=== PATIENT | male | born 1980 | race Caucasian/White ===

== ENCOUNTER → 2020-08-21 10:29 | Outpatient (CLI) | payer OTHER, SELFPAY ==
[2020-08-21 11:44] LABS: Hemoglobin A1C% w Est Avg Glu 5.4 % (4.0-6.0)
[2020-08-21 12:07] LABS: Alanine Aminotransferase 39 IU/L (<50); Albumin 4.3 g/dL (3.5-5.0); Albumin Globulin Ratio 1.3 (1.0-2.8); Alkaline Phosphatase 95 U/L (38-126); Aspartate Aminotransferase 31 IU/L (17-59); BUN Creatinine Ratio 15.6 (6-22); Bilirubin Total 0.5 mg/dL (0.2-1.3); Blood Urea Nitrogen 15 mg/dL (9-20); Calcium 9.5 mg/dL (8.4-10.2); Carbon Dioxide 31 mmol/L (22-32); Chloride 104 mmol/L (98-107); Cholesterol 254 mg/dL (140-199); Estimated Glomerular Filt Rate > 60.0 mL/min (>60); Globulin 3.3 g/dL (1.7-4.1); Glucose 102 mg/dL (70-100); HDL Cholesterol 34 mg/dL (40-60); HEMOLYSIS < 15 (0-50); Potassium 3.7 mmol/L (3.4-5.1); Sodium 138 mmol/L (137-145); Total Protein 7.6 g/dL (6.3-8.2)
[2020-08-21 12:29] LABS: Triglycerides 617 mg/dL (35-150)
[2020-08-21 12:36] LABS: TSH w/ Reflex to FT4 2.23 uIU/mL (0.47-4.68)
[2020-08-26 09:45] LABS: Percent Free Testosterone 4.32 % (1.50-4.20); Testosterone Free 10.93 ng/dL (5.00-21.00)
== END ==
PROVIDERS: PCP Family Medicine; Referring Provider Family Medicine; Visit Provider Family Medicine
DX: N52.9 Male erectile dysfunction, unspecified (principal)
CPT/HCPCS: 36415; 80053; 80061; 83036; 84402; 84403; 84443

== ENCOUNTER → 2020-08-28 11:31 | Outpatient (CLI) | payer OTHER, SELFPAY | PROVIDERS: PCP Family Medicine; Referring Provider Family Medicine; Visit Provider Family Medicine | DX: R79.89 Other specified abnormal findings of blood chemistry (principal) | CPT/HCPCS: 36415; 84402; 84403 ==

== ENCOUNTER → 2020-09-07 14:40 | Outpatient (CLI) | payer OTHER, SELFPAY ==
[2020-09-12 05:18] LABS: Percent Free Testosterone 3.12 % (1.50-4.20); Testosterone Free 7.38 ng/dL (5.00-21.00); Testosterone Total 236.5 ng/dL (264.0-916.0)
== END ==
PROVIDERS: PCP Family Medicine; Referring Provider Family Medicine; Visit Provider Family Medicine
DX: N52.9 Male erectile dysfunction, unspecified (principal)
CPT/HCPCS: 36415; 84402; 84403

== ENCOUNTER → 2020-10-05 15:21 | Outpatient (CLI) | payer OTHER, SELFPAY ==
[2020-10-05 16:56] LABS: Add Manual Diff / Slide Review NO; Basophils Absolute Auto 100 /uL (0-100); Basophils Percent Auto 0.7 % (0-2); Eosinophils Absolute Auto 400 /uL (0-450); Eosinophils Percent Auto 4.7 % (2-4); Hematocrit 44.7 % (41-53); Hemoglobin 15.3 g/dL (13.5-17.5); Lymphocytes Absolute Auto 3000 /uL (1100-4500); Lymphocytes Percent Auto 33.5 % (25-40); Mean Corpuscular HGB Conc 34.2 % (30-36); Mean Corpuscular Hemoglobin 31.8 PG (26-34); Mean Corpuscular Volume 92.9 fL (80-100); Monocytes Absolute Auto 1100 /uL (0-900); Monocytes Percent Auto 11.9 % (3-14); Neutrophils Absolute Auto 4400 /uL (1500-7000); Neutrophils Percent Auto 49.2 % (50-75); Platelet Count 290 X10^3/uL (150-400); Red Blood Cell Count 4.82 X10^6/uL (4.5-5.9); Red Cell Distribution Width 13.1 % (11.6-14.8); White Blood Cell Count 8.9 X10^3/uL (4.5-11.0)
== END ==
PROVIDERS: PCP Family Medicine; Referring Provider Family Medicine; Visit Provider Family Medicine
DX: R79.89 Other specified abnormal findings of blood chemistry (principal); Z12.5 Encounter for screening for malignant neoplasm of prostate
CPT/HCPCS: 36415; 85025; G0103

== ENCOUNTER → 2020-12-03 11:18 | Outpatient (CLI) | payer OTHER, SELFPAY ==
[2020-12-03 12:37] LABS: Add Manual Diff / Slide Review NO; Basophils Absolute Auto 0 /uL (0-100); Basophils Percent Auto 0.6 % (0-2); Eosinophils Absolute Auto 400 /uL (0-450); Eosinophils Percent Auto 6.5 % (2-4); Hematocrit 45.7 % (41-53); Hemoglobin 15.5 g/dL (13.5-17.5); Lymphocytes Absolute Auto 2500 /uL (1100-4500); Lymphocytes Percent Auto 36.7 % (25-40); Mean Corpuscular Hemoglobin 31.7 PG (26-34); Mean Corpuscular Volume 93.1 fL (80-100); Monocytes Absolute Auto 900 /uL (0-900); Monocytes Percent Auto 12.8 % (3-14); Neutrophils Absolute Auto 2900 /uL (1500-7000); Neutrophils Percent Auto 43.4 % (50-75); Platelet Count 260 X10^3/uL (150-400); Red Blood Cell Count 4.91 X10^6/uL (4.5-5.9); White Blood Cell Count 6.8 X10^3/uL (4.5-11.0)
[2020-12-03 12:52] LABS: Cholesterol 151 mg/dL (140-199); HDL Cholesterol 39 mg/dL (40-60); LDL Cholesterol Calculated 78 mg/dL (<100); Triglycerides 168 mg/dL (35-150)
[2020-12-07 07:41] LABS: Percent Free Testosterone 3.86 % (1.50-4.20); Testosterone Free 20.36 ng/dL (5.00-21.00); Testosterone Total 527.5 ng/dL (264.0-916.0)
== END ==
PROVIDERS: PCP Family Medicine; Referring Provider Family Medicine; Visit Provider Family Medicine
DX: R79.89 Other specified abnormal findings of blood chemistry (principal); E78.5 Hyperlipidemia, unspecified
CPT/HCPCS: 36415; 80061; 84402; 84403; 85025

== ENCOUNTER → 2021-06-13 15:15 | Outpatient (CLI) | payer OTHER, SELFPAY ==
[2021-06-19 15:58] LABS: Percent Free Testosterone 4.02 % (1.50-4.20); Testosterone Free 7.13 ng/dL (5.00-21.00); Testosterone Total 177.4 ng/dL (264.0-916.0)
== END ==
PROVIDERS: PCP Family Medicine; Referring Provider Family Medicine; Visit Provider Family Medicine
DX: R79.89 Other specified abnormal findings of blood chemistry (principal)
CPT/HCPCS: 36415; 84402; 84403

== ENCOUNTER → 2021-12-07 09:33 | Outpatient (CLI) | payer OTHER, SELFPAY ==
[2021-12-07 09:58] LABS: Add Manual Diff / Slide Review NO; Basophils Absolute Auto 100 /uL (0-100); Basophils Percent Auto 0.6 % (0-2); Eosinophils Absolute Auto 400 /uL (0-450); Eosinophils Percent Auto 5.3 % (2-4); Hematocrit 47.1 % (41-53); Hemoglobin 16.1 g/dL (13.5-17.5); Lymphocytes Absolute Auto 2400 /uL (1100-4500); Lymphocytes Percent Auto 29.1 % (25-40); Mean Corpuscular HGB Conc 34.2 % (30-36); Mean Corpuscular Hemoglobin 31.3 PG (26-34); Mean Corpuscular Volume 91.5 fL (80-100); Monocytes Absolute Auto 1000 /uL (0-900); Monocytes Percent Auto 11.7 % (3-14); Neutrophils Absolute Auto 4300 /uL (1500-7000); Neutrophils Percent Auto 53.3 % (50-75); Platelet Count 299 X10^3/uL (150-400); Red Blood Cell Count 5.14 X10^6/uL (4.5-5.9); Red Cell Distribution Width 13.3 % (11.6-14.8); White Blood Cell Count 8.1 X10^3/uL (4.5-11.0)
[2021-12-07 10:23] LABS: Alanine Aminotransferase 48 IU/L (<50); Albumin 4.8 g/dL (3.5-5.0); Albumin Globulin Ratio 1.7 (1.0-2.8); Alkaline Phosphatase 94 U/L (38-126); Aspartate Aminotransferase 32 IU/L (17-59); BUN Creatinine Ratio 17.5 (6-22); Bilirubin Total 0.7 mg/dL (0.2-1.3); Blood Urea Nitrogen 17 mg/dL (9-20); Calcium 9.3 mg/dL (8.4-10.2); Carbon Dioxide 28 mmol/L (22-32); Chloride 106 mmol/L (98-107); Cholesterol 154 mg/dL (140-199); Estimated Glomerular Filt Rate > 60 mL/min (>60); Globulin 2.8 g/dL (1.7-4.1); Glucose 101 mg/dL (70-100); HDL Cholesterol 37 mg/dL (40-60); HEMOLYSIS < 15 (0-50); LDL Cholesterol Calculated 76 mg/dL (<100); Potassium 3.7 mmol/L (3.4-5.1); Sodium 142 mmol/L (137-145); Total Protein 7.6 g/dL (6.3-8.2); Triglycerides 205 mg/dL (35-150)
[2021-12-16 11:20] LABS: Percent Free Testosterone 3.21 % (1.50-4.20); Testosterone Free 7.51 ng/dL (5.00-21.00); Testosterone Total 233.9 ng/dL (264.0-916.0)
== END ==
PROVIDERS: PCP Family Medicine; Referring Provider Family Medicine; Visit Provider Family Medicine
DX: R79.89 Other specified abnormal findings of blood chemistry (principal); E78.5 Hyperlipidemia, unspecified
CPT/HCPCS: 36415; 80053; 80061; 84402; 84403; 85025

== ENCOUNTER 2022-02-16 15:13 | Emergency (ER) | payer OTHER, SELFPAY ==
[2022-02-16 16:00] VITALS: BP 132/91; PULSE 98; RESP 18; TEMP 36.6; O2SAT 98; BMI 33.5
--- NOTE | 2022-02-16 20:30 | DI.RAD.S_ITS ---
PROCEDURE: XR CHEST 2V INDICATIONS: cough, worsening, post COVID TECHNIQUE: 2 views of the chest were acquired. COMPARISON: None. FINDINGS: Surgical changes and devices: None. Lungs and pleura: There are linear opacities in the lung bases likely representing atelectasis or scarring. No acute consolidation. No pleural effusions or pneumothorax. Mediastinum: Mediastinal contours are normal. Heart size is normal. Bones and chest wall: No suspicious bony abnormalities. Soft tissues appear unremarkable. IMPRESSION: 1. Probable linear atelectasis or scarring in the lung bases. No acute consolidation. Dictated by: Tim Willett M.D. on 02/16/2022 at 22:16 Approved by: Tim Willett M.D. on 02/16/2022 at 22:17
--- NOTE | 2022-02-16 20:32 | ED.URI ---
HPI - URI/Sore Throat General Chief Complaint: Upper Respiratory Symptoms Stated Complaint: covid+ 16/trouble swallowing Time Seen by Provider: 02/16/22 18:55 Source: patient Mode of arrival: Ambulatory History of Present Illness HPI Narrative: 41-year-old male nonsmoker with history of hyperlipidemia and seasonal allergies presents for evaluation of a persistent, if not worsening cough that seems to be worse with deep breath as well as attempts at conversation. He is not profoundly short of breath with exertion or at rest, chief complaint is of cough as stated above. He had been diagnosed with COVID about 2 weeks ago along with multiple other family members, all of which have recovered completely. Additionally he has a sore throat, difficulty swallowing due to pain. He has had no nausea, vomiting or diarrhea. He denies any urinary complaints. He has been taking jkxb-sns-jmuwria medications including antihistamines and Mucinex with minimal relief. Related Data Previous Rx's Medication Instructions Recorded pimecrolimus 1 % topical cream 1 applic topical BID Eczema #60 01/25/21 (Elidel) grams loratadine 10 mg tablet (Claritin) 10 mg PO DAILY PRN allergy 08/05/21 symptoms #90 tabs atorvastatin 20 mg tablet (Lipitor) 20 mg PO DAILY #90 tabs 12/05/21 testosterone 10 mg/0.5 4 pump topical QAM #60 grams 12/05/21 gram/actuation transdermal gel pump Allergies Allergy/AdvReac Type Severity Reaction Status Date / Time No Known Drug Allergies Allergy Verified 02/16/22 16:12 Review of Systems Review of Systems Narrative: GENERAL: See HPI HEENT: See HPI RESPIRATORY: See HPI CARDIOVASCULAR: Denies chest pain, palpitations, orthopnea, edema, GASTROINTESTINAL: Denies nausea, vomiting, abdominal pain, diarrhea, constipation, melena. : Denies dysuria, frequency, incontinence, hematuria, urinary retention. MUSCULOSKELETAL: denies weakness, joint pain, or bony pain SKIN: Denies rash, skin lesions, or other NEUROLOGIC: Denies weakness, headache, numbness, change in speech, confusion, seizures, incoordination. PSYCHIATRIC: No concerning psychosocial issues. 12 point review of systems is negative except for those stated above Patient History Medical History Allergies (~2006) Dermatitis, dyshidrotic Eczema (~2018) Erectile dysfunction Fractures Hemorrhoid (~2013) Hyperlipidemia Low testosterone Sleep apnea (~2012) Family History Father Diabetes mellitus Hypertension Hyperlipidemia Mother Cancer Diabetes mellitus Hypertension Mental health problem Social History Smoking Status: Never smoker Smoking Status: Never smoker alcohol intake frequency: a few times a week Substance Use Type: does not use Exam Narrative Exam Narrative: GEN: Awake and alert. Non toxic. Interacting appropriately for age. Dry hacking cough with conversation, no hypoxemia SKIN: Warm, pink, dry. no rash, erythema HEAD: nontraumatic EYES: Pupils equal, round and reactive to light and accommodation. No conjunctivitis or scleral injection ENT: nose without drainage, TMs clear with normal landmarks. No lymphadenopathy. Posterior pharynx is erythematous her with white patchy plaques, no mass or pointing uvula, no evidence of abscess. HEART: No murmurs, clicks, rubs, or gallops. LUNGS: Clear to auscultation bilaterally without wheezes, rales or rhonchi ABD: Soft and nontender, normal bowel sounds EXT: Full painless ROM of joints. No bony tenderness NEURO: Normal muscle tone and equal strength. No numbness or tingling Initial Vital Signs Initial Vital Signs: Vital Signs Temperature 98 F 02/16/22 16:00 Pulse Rate 98 H 02/16/22 16:00 Respiratory Rate 18 02/16/22 16:00 Blood Pressure 132/91 H 02/16/22 16:00 Pulse Oximetry 98 02/16/22 16:00 Oxygen Delivery Method 02/16/22 16:00 Course Orders Ordered: Discontinued Medications Albuterol (Albuterol Hfa Prepack) 1 box MISC SEEINSTR ONE Stop: 02/16/22 22:31 Last Admin: 02/16/22 22:42 Dose: 1 box Documented By: BH Al Hydrox/Mg Hydrox/Simethicone 20 ml/ Lidocaine HCl 15 ml 0 ml PO NOW ONE Stop: 02/16/22 20:36 Last Admin: 02/16/22 20:45 Dose: 35 ml Documented By: HNG Vital Signs Vital signs: Vital Signs - 8 hr 02/16/22 22:43 Pulse Rate 80 MDM - URI/Sore Throat Lab Data Labs: Point of Care Testing Rapid Strep A Negative Imaging Data Chest x-ray: Radiologist's Impression: [address] [address] XRay Report Signed Patient: Jono Davis MR#: [id number] : 1980 Acct:[id number] Age/Sex: 41 / M Date of Service: 02/16/22 Loc: ED Accession Number: [id number] ?? Procedure: XR chest 2V Ordering Provider: Garrett Salinas D.O. PROCEDURE:? XR CHEST 2V ? INDICATIONS:? cough, worsening, post COVID ? TECHNIQUE:? 2 views of the chest were acquired.? ? COMPARISON:? None. ? FINDINGS:? ? Surgical changes and devices:? None.? ? Lungs and pleura:? There are linear opacities in the lung bases likely representing atelectasis or scarring.? No acute consolidation.? No pleural effusions or pneumothorax.? ? ? Mediastinum:? Mediastinal contours are normal.? Heart size is normal.? ? Bones and chest wall:? No suspicious bony abnormalities.? Soft tissues appear unremarkable.? ? IMPRESSION:? ? 1. Probable linear atelectasis or scarring in the lung bases.? No acute consolidation. ? ? Dictated by: Tim Willett M.D. on 02/16/2022 at 22:16 ? ? Approved by: Tim Willett M.D. on 02/16/2022 at 22:17 ? Discharge Plan Departure Patient Disposition: Home Clinical Impression: COVID-19, Pharyngitis Instructions: DI for Viral Pharyngitis, DI for COVID-19 (Suspected or Confirmed ) Activity Restrictions/Additional Instructions: *You have been diagnosed with [ongoing cough, due to COVID. As we discussed her chest x-ray was clear and there is no evidence of a bacterial pneumonia. The swab of your throat was negative for strep, a culture is pending and we will call you if there are abnormal findings that would require a different treatment plan *What to do: *Please continue to take your regular medications as directed. [ ] New medication prescriptions sent to your pharmacy: [ ] [ ] New medication written as a paper prescription [ ] No new medications given *Please follow up with your primary care provider in 2-3 days, call for an appointment. Let them know you were seen in the Emergency Department and that we ask that you be seen in follow up. We will electronically transmit a record of today's note if your PCP is in our system * for your sore throat please consider the use of qzar-tmo-dlkabfi medications including Maalox and liquid Benadryl. Again, as we discussed we will call you if there are abnormal findings on your throat culture *If you do not have a primary care provider please contact the [facility] Resource line at [phone]. They will ask some questions about your medical history and help get you set up with a doctor in the community. *Return to Emergency Department if you should have any new, worsening or concerning symptoms, such as [fever greater than 101 F, shaking chills, worsening pain, persistent vomiting or other bothersome symptoms] Prescriptions: No Action pimecrolimus [Elidel] 1 % cream 1 applic topical BID Qty: 60 0RF Rx Instructions: Apply to affected area twice daily loratadine [Claritin] 10 mg tablet 10 mg PO DAILY PRN (Reason: allergy symptoms) Qty: 90 1RF testosterone 10 mg/0.5 gram /actuation gel in metered-dose pump 4 pump topical QAM Qty: 60 2RF Rx Instructions: apply 20 mg/2 pumps to front and inner area of EACH thigh; avoid water for >=2 hrs atorvastatin [Lipitor] 20 mg tablet 20 mg PO DAILY Qty: 90 2RF Referrals: Ignacio Chow MD [Primary Care Provider] - Visit Report Forms: Patient Portal/API
[2022-02-16] MEDS: MAG HYDROX/ALUMINUM/SIMETH SUS 20 ML, LIDOCAINE VISCOUS 2% 15 ML PO (20:45)
[2022-02-16] MEDS: ALBUTEROL HFA PREPACK 1 BOX MISC (22:42)
[2022-02-16 22:43] VITALS: PULSE 80
== END 2022-02-16 22:55 | disposition home or self-care (01) ==
PROVIDERS: Emergency Provider Emergency Medicine; PCP Family Medicine
DX: U07.1 COVID-19 (principal); J02.9 Acute pharyngitis, unspecified
CPT/HCPCS: 71046; 87070; 87077; 87880; 94640; 99283; 99284

== ENCOUNTER → 2022-09-12 11:26 | Outpatient (CLI) | payer OTHER, SELFPAY ==
[2022-09-12 14:01] LABS: Prostate Specific Antigen Scrn 0.492 ng/mL (0.1-4.0)
[2022-09-18 09:36] LABS: Percent Free Testosterone 2.39 % (1.50-4.20); Testosterone Free 7.25 ng/dL (5.00-21.00); Testosterone Total 303.3 ng/dL (264.0-916.0)
== END ==
PROVIDERS: PCP Family Medicine; Referring Provider Family Medicine; Visit Provider Family Medicine
DX: R79.89 Other specified abnormal findings of blood chemistry (principal); Z12.5 Encounter for screening for malignant neoplasm of prostate
CPT/HCPCS: 36415; 84402; 84403; G0103

== ENCOUNTER → 2023-11-06 06:57 | Outpatient (CLI) | payer OTHER, SELFPAY ==
[2023-11-06 07:51] LABS: Add Manual Diff / Slide Review NO; Basophils Absolute Auto 100 /uL (0-100); Basophils Percent Auto 0.8 % (0-2); Eosinophils Absolute Auto 500 /uL (0-450); Eosinophils Percent Auto 4.7 % (2-4); Hemoglobin 16.4 g/dL (13.5-17.5); Lymphocytes Absolute Auto 3100 /uL (1100-4500); Lymphocytes Percent Auto 31.2 % (25-40); Mean Corpuscular HGB Conc 34.8 % (30-36); Mean Corpuscular Hemoglobin 31.8 PG (26-34); Mean Corpuscular Volume 91.5 fL (80-100); Monocytes Absolute Auto 1100 /uL (0-900); Monocytes Percent Auto 11.3 % (3-14); Neutrophils Absolute Auto 5200 /uL (1500-7000); Platelet Count 292 X10^3/uL (150-400); Red Blood Cell Count 5.14 X10^6/uL (4.5-5.9); Red Cell Distribution Width 13.5 % (11.6-14.8)
[2023-11-06 08:06] LABS: Alanine Aminotransferase 62 IU/L (<50); Albumin 4.5 g/dL (3.5-5.0); Albumin Globulin Ratio 1.4 (1.0-2.8); Alkaline Phosphatase 88 U/L (38-126); Aspartate Aminotransferase 41 IU/L (17-59); Blood Urea Nitrogen 16 mg/dL (9-20); Calcium 9.5 mg/dL (8.4-10.2); Carbon Dioxide 26 mmol/L (22-32); Chloride 106 mmol/L (98-107); Cholesterol 153 mg/dL (140-199); Estimated Glomerular Filt Rate > 60 mL/min (>60); Globulin 3.2 g/dL (1.7-4.1); Glucose 94 mg/dL (70-100); HDL Cholesterol 39 mg/dL (40-60); HEMOLYSIS < 15 (0-50); Hemoglobin A1C% w Est Avg Glu 5.4 % (4.0-6.0); LDL Cholesterol Calculated 74 mg/dL (<100); Sodium 140 mmol/L (137-145); Total Protein 7.7 g/dL (6.3-8.2); Triglycerides 199 mg/dL (35-150)
[2023-11-06 08:32] LABS: TSH w/ Reflex to FT4 3.81 uIU/mL (0.47-4.68)
[2023-11-13 15:40] LABS: Percent Free Testosterone 3.92 % (1.50-4.20); Testosterone Free 47.91 ng/dL (5.00-21.00); Testosterone Total 1222.3 ng/dL (264.0-916.0)
== END ==
LOC: LAB 06:57
PROVIDERS: PCP Family Medicine; Referring Provider Family Medicine; Visit Provider Family Medicine
DX: E78.5 Hyperlipidemia, unspecified (principal); R79.89 Other specified abnormal findings of blood chemistry; N52.9 Male erectile dysfunction, unspecified; R73.9 Hyperglycemia, unspecified
CPT/HCPCS: 36415; 80053; 80061; 83036; 84402; 84403; 84443; 85025

== ENCOUNTER → 2023-11-25 14:50 | Outpatient (CLI) | payer OTHER, SELFPAY ==
[2023-12-01 10:09] LABS: Percent Free Testosterone 2.42 % (1.50-4.20); Testosterone Free 5.29 ng/dL (5.00-21.00); Testosterone Total 218.5 ng/dL (264.0-916.0)
== END ==
PROVIDERS: PCP Family Medicine; Referring Provider Family Medicine; Visit Provider Family Medicine
DX: R79.89 Other specified abnormal findings of blood chemistry (principal); N52.9 Male erectile dysfunction, unspecified
CPT/HCPCS: 36415; 84402; 84403

== ENCOUNTER 2024-04-21 12:42 | Day surgery (SDC) | payer OTHER, SELFPAY ==
--- NOTE | 2024-04-21 | PATH_ITS ---
[facility] Accession Number: [id number] No. of containers..04 Tissue . 01 Material submitted: . PART A: duodenum - DUODENUM PART B: colon - SIGMOID MUCOSA PART C: rectum - RECTAL POLYP PART D: gastrointestinal site - ANTRUM . 01 Diagnosis: Part A: DUODENUM: Duodenal mucosa with no diagnostic alterations. No active inflammation and no evidence of celiac disease. . Part B: SIGMOID MUCOSA: Colonic mucosa with no diagnostic alterations. No active inflammation, granulomas, dysplasia, or malignancy identified. No evidence of colitis. . Part C: RECTAL POLYP: Traditional serrated adenoma. . Part D: ANTRUM: Gastric mucosa with mild chronic inflammation. No Helicobacter organisms identified. No intestinal metaplasia, dysplasia, or malignancy identified. [facility] 04/28/2024 1502 Local . 01 Electronically signed: . Tim England MD, Pathologist NPI- [id number] . 01 Gross description: . Part A: DUODENUM: Received in formalin are 2 fragment(s) of aldrich, soft tissue measuring 0.1 x 0.1 x 0.1 cm to 0.2 x 0.2 x 0.2 cm submitted entirely in 1 cassette(s) . Part B: SIGMOID MUCOSA: Received in formalin are 3 fragment(s) of aldrich, soft tissue measuring 0.2 x 0.2 x 0.1 cm to 0.3 x 0.3 x 0.2 cm submitted entirely in 1 cassette(s) . Part C: RECTAL POLYP: Received in formalin are 3 fragment(s) of aldrich, soft tissue measuring 0.3 x 0.2 x 0.2 cm to 0.5 x 0.3 x 0.3 cm submitted entirely in 1 cassette(s) . Part D: ANTRUM: Received in formalin are 3 fragment(s) of aldrich, soft tissue measuring 0.1 x 0.1 x 0.1 cm to 0.3 x 0.3 x 0.2 cm submitted entirely in 1 cassette(s) /[facility] 04/28/2024 1502 Local . 01 Microscopic: . Part D: ANTRUM: An immunohistochemical stain was performed to evaluate for Helicobacter organisms and is negative. The control stains appropriately. * This test was developed and its performance characteristics determined by [facility]. It has not been cleared or approved by the U.S. Food and Drug Administration. The FDA has determined that such clearance or approval is not necessary. This test is used for clinical purposes. It should not be regarded as investigational or for research. . 01 Pathologist provided ICD-10: D12.8, K29.50 . 01 CPT . 924675, 327678, 378070, 870476, [id number] Specimen Comment: A courtesy copy of this report has been sent to [phone] Performed at: [address] [facility] [address], [place], [place] [id number] MD Tim England MD Phone: [phone]
[2024-04-21 13:14] VITALS: BP 154/94; PULSE 97; RESP 16; TEMP 36.1; O2SAT 98
[2024-04-21] MEDS: LACTATED RINGERS 1,000 ML 42 ML IV (13:26)
--- NOTE | 2024-04-21 13:41 | P.HP_ITS ---
History of Present Illness History of Present Illness Date Patient Seen: 04/21/24 Time Patient Seen: 13:41 Chief complaint: EGD & Colonoscopy w/poss bx's Narrative: Jignesh is a 43 year old man who presents with a family history of colon cancer and borborygmi. See the office note from January for details. [facility] Medical History Hyperlipidemia Low testosterone Dermatitis, dyshidrotic Erectile dysfunction Eczema (~2018) Sleep apnea (~2012) Allergies (~2006) Fractures Hemorrhoid (~2013) Family History Father Diabetes mellitus Hypertension Hyperlipidemia Cancer Mother Cancer Diabetes mellitus Hypertension Mental health problem Social History Smoking Status: Never smoker alcohol intake: current Meds Home Medications and Allergies Home Medications Medication Instructions Recorded Confirmed Type atorvastatin 20 mg tablet (Lipitor) 20 mg PO DAILY #90 tabs 11/17/23 04/21/24 Rx Allergies Allergy/AdvReac Type Severity Reaction Status Date / Time No Known Drug Allergies Allergy Verified 04/21/24 13:11 Exam Vital Signs (past 8 hours): - 04/21/24 13:14 Temperature 97 F L Pulse Rate 97 H Respiratory Rate 16 Blood Pressure 154/94 H Pulse Oximetry 98 Oxygen Delivery Method Room Air Oxygen Delivery Method Room Air Const General: No acute distress Resp Effort & Inspection: normal respiratory effort Assessment & Plan Assessment and plan (1) Borborygmus: Status: Acute (2) Family history of GI malignancy: Status: Acute Plan We reviewed the risks and benefits of EGD and colonoscopy for a family history of colon cancer and borborygmi this and he would like to proceed. Time-Based Coding :: [TOTAL MINUTES] spent with patient and on the chart (including review of chart, obtaining history, exam, reviewing outside data, placing orders, documenting exam and treatment plan, and counseling patient) on [DATE].
--- NOTE | 2024-04-21 14:30 | P.OP.EGD&C_ITS ---
Operative Date/Time/Diagnoses Date of procedure: 04/21/24 Time of procedure: 14:30 Pre-op diagnosis: Family history of colon cancer and borborygmi Post-op diagnosis: same Procedure & Clinicians Study performed: EGD and colonoscopy Same procedure as scheduled: Yes Surgeon: Chepe Wilson Procedure Notes Procedure in detail: Surgeon: Chepe Wilson MD Anesthesia: Ximena Kerr LEAD TECHNOLOGIST IN CYTOGENETICS Procedure in detail: A timeout was performed. A bite blocked was placed and monitors were attached to the patient. The patient was positioned in the left lateral decubitus position. Sedation was administered. Once the patient was sedated the endoscope was inserted through the bite block and passed through the esophagus and stomach and into the duodenum. The duodenal mucosa appeared normal however random biopsies were taken with forceps from the duodenum. We then withdrew the scope into the stomach. There was some mild antritis and random biopsies were taken from the antrum with forceps. The endoscope was retroflexed and no hiatal hernia was seen. The endoscope was straightned and wi thdrawn into the esophagus. No other abnormalities were seen. EGD findings: Antritis Next we repositioned the patient for a colonoscopy. A digital rectal exam was performed and was normal. The colonoscope was inserted and advanced to the cecum. The appendiceal orifice was identified and photographed. The scope was slowly withdrawn over greater than 6 minutes. There were some small shallow ulcerations and mild inflammation in the distal sigmoid and proximal rectum and biopsies were taken from the mucosa with cold forceps. There was a 5 mm rectal polyp removed with a cold snare. The scope was retroflexed in the rectum and no other abnormalities were found. Colonoscopy findings: Mild inflammation and small, shallow ulcerations of the distal sigmoid and proximal colon and 5 mm rectal polyp Total procedural EBL: 10 mL Scope withdrawal time: 10 minutes Sedation minutes: 24 minutes Post-procedure Disposition: PACU
[2024-04-21 14:32] VITALS: BP 126/77; PULSE 97; RESP 16; TEMP 36.8; O2SAT 97
[2024-04-21 14:37] VITALS: BP 122/82; PULSE 96; RESP 16; TEMP 36.2; O2SAT 96
[2024-04-21 14:40] VITALS: BP 154/94; PULSE 97; RESP 16; TEMP 36.8; O2SAT 98
[2024-04-21 15:00] VITALS: BP 140/70; PULSE 88; RESP 18; TEMP 36.2; O2SAT 98
== END 2024-04-21 15:04 | disposition home or self-care (01) ==
PROVIDERS: PCP Family Medicine; Referring Provider Surgery; Visit Provider Surgery
PROC: 0DJ08ZZ Inspection of Upper Intestinal Tract, Via Natural or Artificial Opening Endoscopic (ICD-10-PCS; CPT 43235; principal; 2024-04-21 14:00)
PROC: 0DJD8ZZ Inspection of Lower Intestinal Tract, Via Natural or Artificial Opening Endoscopic (ICD-10-PCS; CPT 45378; 2024-04-21 14:00)
DX: R19.15 Other abnormal bowel sounds (principal); Z80.0 Family history of malignant neoplasm of digestive organs; D12.8 Benign neoplasm of rectum; K29.50 Unspecified chronic gastritis without bleeding
CPT/HCPCS: 45385; 45380; 43239; J2250; J2704

== ENCOUNTER → 2024-12-12 08:15 | Outpatient (CLI) | payer OTHER, SELFPAY ==
[2024-12-12 08:53] LABS: Add Manual Diff / Slide Review NO; Basophils Absolute Auto 100 /uL (0-100); Basophils Percent Auto 0.6 % (0-2); Eosinophils Absolute Auto 400 /uL (0-450); Eosinophils Percent Auto 4.7 % (2-4); Hematocrit 51.2 % (41-53); Hemoglobin 17.6 g/dL (13.5-17.5); Lymphocytes Absolute Auto 2700 /uL (1100-4500); Lymphocytes Percent Auto 28.9 % (25-40); Mean Corpuscular HGB Conc 34.4 % (30-36); Mean Corpuscular Volume 93.2 fL (80-100); Monocytes Absolute Auto 1300 /uL (0-900); Monocytes Percent Auto 13.6 % (3-14); Neutrophils Absolute Auto 4900 /uL (1500-7000); Neutrophils Percent Auto 52.2 % (50-75); Platelet Count 244 X10^3/uL (150-400); Red Cell Distribution Width 13.4 % (11.6-14.8); White Blood Cell Count 9.5 X10^3/uL (4.5-11.0)
[2024-12-12 09:15] LABS: Alanine Aminotransferase 45 IU/L (<50); Albumin 4.5 g/dL (3.5-5.0); Albumin Globulin Ratio 1.7 (1.0-2.8); Alkaline Phosphatase 78 U/L (38-126); Aspartate Aminotransferase 36 IU/L (17-59); BUN Creatinine Ratio 13.6 (6-22); Bilirubin Total 1.2 mg/dL (0.2-1.3); Blood Urea Nitrogen 14 mg/dL (9-20); Calcium 9.3 mg/dL (8.4-10.2); Carbon Dioxide 30 mmol/L (22-32); Chloride 100 mmol/L (98-107); Cholesterol 135 mg/dL (140-199); Creatinine Urine Random 71.46 mg/dL; Estimated Glomerular Filt Rate > 60 mL/min (>60); Globulin 2.7 g/dL (1.7-4.1); Glucose 104 mg/dL (70-100); HDL Cholesterol 34 mg/dL (40-60); HEMOLYSIS < 15 (0-50); LDL Cholesterol Calculated 65 mg/dL (<100); Potassium 3.9 mmol/L (3.4-5.1); Sodium 137 mmol/L (137-145); Total Protein 7.2 g/dL (6.3-8.2); Triglycerides 179 mg/dL (35-150)
[2024-12-12 09:22] LABS: Microalbumin Urine Random 0.7 mg/dL (0-1.6)
[2024-12-12 09:46] LABS: Prostate Specific Antigen Scrn 0.637 ng/mL (0.1-4.0)
[2024-12-12 09:47] LABS: TSH w/ Reflex to FT4 1.75 uIU/mL (0.47-4.68)
[2024-12-29 08:39] LABS: Percent Free Testosterone 4.64 % (1.50-4.20); Testosterone Free 41.59 ng/dL (5.00-21.00); Testosterone Total 896.4 ng/dL (264.0-916.0)
== END ==
PROVIDERS: PCP Family Medicine; Referring Provider Family Medicine; Visit Provider Family Medicine
DX: Z00.00 Encounter for general adult medical examination without abnormal findings (principal); E78.5 Hyperlipidemia, unspecified; R79.89 Other specified abnormal findings of blood chemistry; Z80.0 Family history of malignant neoplasm of digestive organs; R73.9 Hyperglycemia, unspecified; Z12.5 Encounter for screening for malignant neoplasm of prostate
CPT/HCPCS: 36415; 80053; 80061; 82043; 82570; 84402; 84403; 84443; 85025; G0103

== ENCOUNTER → 2025-05-03 09:40 | Outpatient (CLI) | payer OTHER, SELFPAY | LOC: CAR 09:41 | PROVIDERS: PCP Family Medicine; Referring Provider Family Medicine; Visit Provider Family Medicine | DX: R00.2 Palpitations (principal) | CPT/HCPCS: 93242 ==